=== PATIENT | male | born 1935 | race Caucasian/White ===

== ENCOUNTER 2017-01-03 08:51 | Emergency (ER) | payer MEDICARE, BC ==
[2017-01-03] MEDS ORDERED: methylPREDNISolone Sodium Succinate 125 MG/2 ML SDV IVPUSH ONE (09:31)
[2017-01-03] MEDS ORDERED: Furosemide 40 MG/4 ML VIAL IVPUSH ONE (09:31)
[2017-01-03] MEDS ORDERED: Albuterol/Ipratropium 3.0-0.5 MG/3 ML Neb Soln NEB ONE (09:32)
[2017-01-03 09:51] LABS: CHLORIDE,CL 106 mmol/L (98-107); SODIUM,NA 142 mmol/L (136-145)
--- NOTE | 2017-01-03 10:10 | EDM.PDOC ---
ED HPI GENERAL MEDICAL PROBLEM - General Chief Complaint: General Stated Complaint: Shortness of breath Time Seen by Provider: 01/03/17 09:15 Source of Information: Reports: Patient, EMS History Limitations: Reports: No limitations - History of Present Illness INITIAL COMMENTS - FREE TEXT/NARRATIVE: Patient woke with sudden severe SOB this morning. Usually is on O2 via NC at 2L at home due to COPD. Denies having any changes in health recently and had a "normal" day yesterday. Noted by EMS to have O2 sats in 60s upon arrival. Denies fever/chills. No GI changes. No recent falls. Had mild cough this morning, non-productive. No diaphoresis. Denies any pain. Patient has complicated past medical history that includes AR/CAD, stroke, diabetes. 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 Uses walker and transfer belt. Incontinent. 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/IO, Oxygen - Related Data Allergies Allergy/AdvReac Type Severity Reaction Status Date / Time No Known Allergies Allergy Verified 01/03/17 09:05 Home Meds: Home Meds Albuterol/Ipratropium [DuoNeb 3.0-0.5 MG/3 ML] 3 ml PO BID PRN 12/17/14 [History ] Amiodarone HCl 1 tab PO DAILY 12/17/14 [History] Aspirin [Halfprin] 81 mg PO DAILY 12/17/14 [History] Finasteride 1 tab PO DAILY 12/17/14 [History] Furosemide [Lasix] 20 mg PO DAILY 12/17/14 [History] Glimepiride 1 tab PO QPM 12/17/14 [History] Metoprolol Succinate [Toprol XL] 12.5 mg PO DAILY 12/17/14 [History] Multivitamin with Minerals [Antioxidant Vitamin] 1 each PO DAILY 12/17/14 [ History] Nitroglycerin [Nitrostat] 0.4 mg SL ASDIRECTED PRN 12/17/14 [History] Omeprazole 1 cap PO Q2D 12/17/14 [History] Potassium Chloride [Klor-Con M20] 20 meq PO DAILY 12/17/14 [History] Tamsulosin HCl 1 cap PO DAILY 12/17/14 [History] Warfarin Sodium 3 mg PO DAILY 12/17/14 [History] atorvaSTATin [Lipitor] 40 mg PO BEDTIME 12/17/14 [History] metFORMIN [Glucophage] 1 tab PO BID 12/17/14 [History] Lutein/Minerals/Vit A,C & E [I-Stephania] 1 each PO ASDIRECTED 01/03/17 [History] Past Medical History HEENT History: Reports: Hard of hearing, Impaired vision, Macular degeneration Cardiovascular History: Reports: Afib, Arrhythmia (PACs/PVCs), CAD, Cardiomyopathy, High cholesterol, Hypertension, AR, PVD, Stents, Other (see below) (mitral valve insufficiency) Respiratory History: Reports: COPD, Pulmonary fibrosis Gastrointestinal History: Reports: Colon polyp, Diverticulosis, GERD, Hiatal hernia, PUD Genitourinary History: Reports: BPH, Other (see below) (Renal cysts on right noted in past, chronic hematuria) Musculoskeletal History: Reports: Fracture (multiple fractures in past including hip fractures and rib fractures.), Gout, Osteoarthritis, Osteoporosis Neurological History: Reports: CVA (Multiple strokes in past. 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 Denies: wheezing, pleuritic chest pain, sputum, hemoptysis Cardiovascular: Denies: Chest pain, Edema, Lightheadedness, Palpitations, Syncope GI/Abdominal: Reports: No symptoms : Reports: no symptoms Musculoskeletal: Reports: no symptoms Skin: Reports: no symptoms Neurological: Reports: no symptoms (No acute changes noted) Psychiatric: Reports: No symptoms Hematologic/Lymphatic: Reports: no symptoms ED EXAM, GENERAL - Physical Exam Exam: See Below Exam Limited By: No limitations General Appearance: alert, thin (looks older than stated age), other (On 15L O2 per non-rebreathing mask. Appears to be resting comfortably on hospital bed. ) Eye Exam: bilateral eye: EOMI, normal inspection, PERRL Ears: normal external exam Nose: normal inspection Throat/Mouth: Normal lips, Normal voice, No airway compromise Head: atraumatic, normocephalic Neck: normal inspection, supple, non-tender, full range of motion. No: carotid bruit, lymphadenopathy (L), lymphadenopathy (R) Respiratory/Chest: decreased breath sounds (bilaterally, more pronounced on right. Noted in all giraldo. ), rhonchi. No: crackles, wheezing, stridor, accessory muscle use, retractions, prolonged expiration Cardiovascular: regular rate, rhythm, no edema, no murmur (no noted heart murmur ) Peripheral Pulses: 2+: radial (L), radial (R), posterior tibial (L), posterior tibial (R) GI/Abdominal: normal bowel sounds, soft, non tender, no distention, hernia ( right inguinal) (Male) Exam: Hernia (right inguinal). No: Inguinal lymphadenopathy, Penile lesions, Scrotum tenderness (L), Scrotum tenderness (R) Back Exam: No: muscle spasm, paraspinal tenderness, vertebral tenderness Extremities: non-tender, no pedal edema, normal capillary refill Neurological: alert, oriented, normal cognition, no motor/sensory deficits, other (patient would not relax when attempts at reflex checks performed) Psychiatric: normal affect, normal mood Skin Exam: Warm, Dry, Intact, Normal color EKG INTERPRETATION EKG Date: 01/03/17 Time: 09:33 Rhythm: NSR Rate (beats/min): 87 [place]: normal P-wave: present QRS: other (Nonspecific ICD) ST-T: other (ST depression noted V4-V6. Questionable mild elevation V2 and V3.) QT: normal Comparison: no change EKG Interpretation Comments: Similar pattern noted with last EKG. Course - Vital Signs Last Recorded V/S: Last Vital Signs Temp 36.7 C 01/03/17 09:10 Pulse 87 01/03/17 11:35 Resp 20 01/03/17 11:35 BP 135/69 01/03/17 11:35 Pulse Ox 94 L 01/03/17 11:35 - Orders/Labs/Meds Orders: Active Orders 24 hr Category Date Time Status EKG Documentation Completion [RC] ASDIRECTED Care 01/03/17 09:16 Active RT Aerosol Therapy [RC] ASDIRECTED Care 01/03/17 09:32 Active Ang Chest [CT] Stat Exams 01/03/17 10:03 Taken Chest 1V Frontal [CR] Stat Exams 01/03/17 09:16 Taken Azithromycin [Zithromax] 500 mg Med 01/03/17 11:52 Active Sodium Chloride 0.9% [Normal Saline] 250 ml IV ONETIME Medication Orders Azithromycin 500 mg/ Sodium (Chloride) 250 mls @ 250 mls/hr IV ONETIME ONE Stop: 01/03/17 12:51 Last Admin: 01/03/17 12:13 Dose: 250 mls/hr Labs: Laboratory Tests 01/03/17 01/03/17 01/03/17 Range/Units 09:23 09:23 09:23 WBC 14.5 H (4.0-10.2) K/uL RBC 4.12 L (4.33-5.41) M/uL Hgb 9.7 L D (13.1-16.8) g/dL Hct 32.5 L (39.0-49.0) % MCV 78.9 L D (84.0-98.0) fL MCH 23.5 L (28.2-33.3) pg MCHC 29.8 L (31.7-36.0) g/dL RDW 18.1 H (11.2-14.1) % Plt Count 291 D (150-350) K/uL Neut % (Auto) 90.9 H (45.0-80.0) % Lymph % (Auto) 4.4 L (10.0-50.0) % [place] % (Auto) 4.4 (2.0-14.0) % Eos % (Auto) 0.2 (0.0-5.0) % Baso % (Auto) 0.1 (0.0-2.0) % Neut # 13.16 H (1.40-7.00) K/uL Lymph # 0.63 (0.50-3.50) K/uL [place] # 0.64 (0.00-1.00) K/uL Eos # 0.03 (0.00-0.50) K/uL Baso # 0.02 (0.00-0.20) K/uL PT (9.8-11.7) SEC INR D-Dimer, Quantitative 1480 H (0-400) ng/mL Sodium 142 (136-145) mmol/L Potassium 4.7 (3.5-5.1) mmol/L Chloride 106 (98-107) mmol/L Carbon Dioxide 26.8 (21.0-32.0) mmol/L BUN 33 H (7-18) mg/dL Creatinine 1.16 (0.51-1.17) mg/dL Est Cr Clr Drug Dosing 46.05 mL/min Estimated GFR (MDRD) > 60 mL/min Glucose 225 H (74-106) mg/dL Lactic Acid (0.4-2.0) mmol/L Calcium 8.5 (8.5-10.1) mg/dL Total Bilirubin 0.4 (0.2-1.0) mg/dL AST 13 L (15-37) U/L ALT 17 (12-78) U/L Alkaline Phosphatase 99 (46-116) IU/L Creatine Kinase 28 (26-308) U/L Creatine Kinase Index 4.6 H* (0.0-2.5) % CK-MB (CK-2) 1.30 (0.00-3.60) ng/mL Troponin I 0.055 (0.000-0.056) ng/mL [id number] Pept 2825 H (0-125) pg/mL Total Protein 6.7 (6.4-8.2) g/dL Albumin 2.6 L (3.4-5.0) g/dL Specimen Type Urine Color Urine Appearance Urine pH (5.0-9.0) Ur Specific [place] (1.005-1.030) Urine Protein (NEGATIVE) mg/dL Urine Glucose (UA) (NEGATIVE) mg/dL Urine Ketones (NEGATIVE) mg/dL Urine Occult Blood (NEGATIVE) Urine Nitrite (NEGATIVE) Urine Bilirubin (NEGATIVE) Urine Urobilinogen (0.2-1.0) E.U./dL Ur Leukocyte Esterase (NEGATIVE) Urine RBC /HPF Urine WBC /HPF Ur Epithelial Cells /LPF Urine Bacteria (NONE TO FEW) /HPF 01/03/17 01/03/17 01/03/17 Range/Units 09:23 09:23 11:00 WBC (4.0-10.2) K/uL RBC (4.33-5.41) M/uL Hgb (13.1-16.8) g/dL Hct (39.0-49.0) % MCV (84.0-98.0) fL MCH (28.2-33.3) pg MCHC (31.7-36.0) g/dL RDW (11.2-14.1) % Plt Count (150-350) K/uL Neut % (Auto) (45.0-80.0) % Lymph % (Auto) (10.0-50.0) % [place] % (Auto) (2.0-14.0) % Eos % (Auto) (0.0-5.0) % Baso % (Auto) (0.0-2.0) % Neut # (1.40-7.00) K/uL Lymph # (0.50-3.50) K/uL [place] # (0.00-1.00) K/uL Eos # (0.00-0.50) K/uL Baso # (0.00-0.20) K/uL PT 21.4 H (9.8-11.7) SEC INR 1.9 D-Dimer, Quantitative (0-400) ng/mL Sodium (136-145) mmol/L Potassium (3.5-5.1) mmol/L Chloride (98-107) mmol/L Carbon Dioxide (21.0-32.0) mmol/L BUN (7-18) mg/dL Creatinine (0.51-1.17) mg/dL Est Cr Clr Drug Dosing mL/min Estimated GFR (MDRD) mL/min Glucose (74-106) mg/dL Lactic Acid 1.9 (0.4-2.0) mmol/L Calcium (8.5-10.1) mg/dL Total Bilirubin (0.2-1.0) mg/dL AST (15-37) U/L ALT (12-78) U/L Alkaline Phosphatase (46-116) IU/L Creatine Kinase (26-308) U/L Creatine Kinase Index (0.0-2.5) % CK-MB (CK-2) (0.00-3.60) ng/mL Troponin I (0.000-0.056) ng/mL [id number] Pept (0-125) pg/mL Total Protein (6.4-8.2) g/dL Albumin (3.4-5.0) g/dL Specimen Type Urinblad Urine Color Yellow Urine Appearance Slightly cloudy Urine pH 5.0 (5.0-9.0) Ur Specific [place] 1.015 (1.005-1.030) Urine Protein Negative (NEGATIVE) mg/dL Urine Glucose (UA) Negative (NEGATIVE) mg/dL Urine Ketones Negative (NEGATIVE) mg/dL Urine Occult Blood Small H (NEGATIVE) Urine Nitrite Negative (NEGATIVE) Urine Bilirubin Negative (NEGATIVE) Urine Urobilinogen 0.2 (0.2-1.0) E.U./dL Ur Leukocyte Esterase Moderate H (NEGATIVE) Urine RBC 0-5 /HPF Urine WBC 40-50 H /HPF Ur Epithelial Cells Rare /LPF Urine Bacteria Many H (NONE TO FEW) /HPF Meds: Medications Generic Name Dose Route Start Last Admin Trade Name Elías PRN Reason Stop Dose Admin Azithromycin 500 mg/ Sodium 250 mls @ 250 mls/hr 01/03/17 11:52 01/03/17 12: 13 Chloride IV 01/03/17 12:51 250 mls/hr ONETIME ONE Administration Discontinued Medications Generic Name Dose Route Start Last Admin Trade Name Elías PRN Reason Stop Dose Admin Albuterol/Ipratropium 3 ml 01/03/17 09:32 01/03/17 09:38 Duoneb 3.0-0.5 Mg/3 Ml NEB 01/03/17 09:33 3 ml ONETIME ONE Administration Furosemide 40 mg 01/03/17 09:31 01/03/17 09:38 Lasix IVPUSH 01/03/17 09:32 40 mg NOW ONE Administration Ceftriaxone Sodium 1 gm/ 100 mls @ 200 mls/hr 01/03/17 11:53 01/03/17 12:13 Sodium Chloride IV 01/03/17 12:22 200 mls/hr ONETIME ONE Administration Iopamidol Confirm 01/03/17 10:20 01/03/17 10:56 Isovue-370 (76%) Administered 01/03/17 10:21 150 ml Dose Administration 150 ml IV .STK-MED ONE Methylprednisolone Sodium Succinate 125 mg 01/03/17 09:31 01/03/17 09:38 Solu-Medrol IVPUSH 01/03/17 09:32 125 mg ONETIME ONE Administration - Radiology Interpretation Free Text/Narrative:: COPD, cardiomegaly, pulmonary fibrosis, as well as CHF noted on chest film. Pulmonary edema more pronounced on right than left. - Re-Assessments/Exams Free Text/Narrative Re-Assessment/Exam: 01/03/17 10:40 Patient given Lasix, additional Duoneb, and Solumedrol. Weaned from non- rebreather mask to high flow NC. Sats above 95%. Suspected he is CO2 retainer. Target for O2 sats decreased to lower 90s. Troponin negative. CKMB normal. DDimer elevated significantly. BNP elevated as was WBC. CT chest to rule out PE ordered. Patient noted to have subtheraputic INR. EKG did suggest ischemia with lateral lead changes however patient showed same pattern when EKG last performed at our facility. Patient remained pain-free. Free Text/Narrative Re-Assessment/Exam: 01/03/17 11:53 CT read by Saul. Likely has aspiration pneumonia LLL. Also noted to have three areas of changes in right lung that suggest pneumonia and possible neoplasms. No PE noted. Also noted to have UTI. Antibiotics initiated. Dr.Addia tamika HERNANDEZ. Departure - Departure Time of Disposition: 12:25 Disposition: DC/Tfer to Acute Hospital 02 Condition: fair Clinical Impression: Pneumonia, UTI, Urinary tract infectious disease Forms: ED Department Discharge - My Orders Last 24 Hours: My Active Orders 01/03/17 09:16 EKG Documentation Completion [RC] ASDIRECTED Chest 1V Frontal [CR] Stat 01/03/17 09:32 RT Aerosol Therapy [RC] ASDIRECTED 01/03/17 10:03 Ang Chest [CT] Stat 01/03/17 11:52 Azithromycin [Zithromax] 500 mg Sodium Chloride 0.9% [Normal Saline] 250 ml IV ONETIME - Assessment/Plan Last 24 Hours: My Active Orders 01/03/17 09:16 EKG Documentation Completion [RC] ASDIRECTED Chest 1V Frontal [CR] Stat 01/03/17 09:32 RT Aerosol Therapy [RC] ASDIRECTED 01/03/17 10:03 Ang Chest [CT] Stat 01/03/17 11:52 Azithromycin [Zithromax] 500 mg Sodium Chloride 0.9% [Normal Saline] 250 ml IV ONETIME
[2017-01-03] MEDS ORDERED: Iopamidol 755 MG/ML 150 ML Bottle IV ONE (10:20)
[2017-01-03 11:43] VITALS: BP 135/69
[2017-01-03] MEDS ORDERED: Azithromycin 500 MG in Sodium Chloride 0.9% 250 ML IV ONE (11:52)
[2017-01-03] MEDS ORDERED: cefTRIAXone 1 GM in Sodium Chloride 0.9% 100 ML IV ONE (11:53)
== END 2017-01-03 12:50 ==
LOC: LL.ED 08:51
DX: J18.9 Pneumonia, unspecified organism (principal); N39.0 Urinary tract infection, site not specified; I48.91 Unspecified atrial fibrillation; J44.9 Chronic obstructive pulmonary disease, unspecified; I25.10 Atherosclerotic heart disease of native coronary artery without angina pectoris; I10 Essential (primary) hypertension; I25.2 Old myocardial infarction; K21.9 Gastro-esophageal reflux disease without esophagitis; E11.9 Type 2 diabetes mellitus without complications; F41.9 Anxiety disorder, unspecified; F32.9 Major depressive disorder, single episode, unspecified; F17.210 Nicotine dependence, cigarettes, uncomplicated; Z79.899 Other long term (current) drug therapy
CPT/HCPCS: 36415; 71010; 71275; 80053; 81001; 82550; 82553; 83605; 83880; 84484; 85025; 85379; 85610; 87070; 87086; 87088; 87186; 93005; 94640; 96365; 96375; 99284; 99285; J0456; J0696; J1940; J2930; J7050; Q9967